=== PATIENT | female | born 1990 | race American Indian/Alaskan Native ===

== ENCOUNTER 2018-03-06 21:18 | Emergency (ER) | payer OTHER ==
[2018-03-07] MEDS ORDERED: MOTRIN PO ONE ×2 (02:05→02:20)
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
[2018-03-07 02:36] VITALS: BP 118/74
== END 2018-03-07 02:35 | disposition home or self-care (01) ==
LOC: ED 21:18
DX: S16.1XXA Strain of muscle, fascia and tendon at neck level, initial encounter (principal); M54.5 Low back pain; V49.49XA Driver injured in collision with other motor vehicles in traffic accident, initial encounter; Y93.89 Activity, other specified; Y92.89 Other specified places as the place of occurrence of the external cause; Y99.8 Other external cause status
CPT/HCPCS: 99282